=== PATIENT | female | born 1965 | race Caucasian/White ===

== ENCOUNTER 2018-05-25 09:31 | Day surgery (SDC) | payer OTHER ==
[2018-05-25] VITALS (16 sets, daily range): BP systolic 120–162; BP diastolic 61–103; PULSE 56–91; RESP 13–20
[~2018-05-25] VITALS: Ht 152.4 cm; Wt 66.9 kg
[~2018-05-25 09:31] MED LIST: CEFAZOLIN 1 GM INJ ONE; CEFAZOLIN 2 GM/50 ML (PMX) 50 ML IVPB ONE; SOD CHLORIDE 0.9% 1,000 ML IV SCH
[2018-05-25] MEDS ORDERED: LOSA25TA12 PO (10:32)
[2018-05-25] MEDS ORDERED: ATOR20TA38 PO (10:33)
--- NOTE | 2018-05-25 12:55 | PREAC ---
Date/Time of Note Date/Time of Note DATE: 05/25/18 TIME: 12:54 Anesthesia Eval and Record Evaluation Time Pre-Procedure Interview DATE: 05/25/18 TIME: 12:54 Age 52 Sex female NPO: 8 hrs Preoperative diagnosis gallstones Planned procedure lap choly Past Medical History Past Medical History: Includes Cardio: HTN Surgery & Anesthesia Issues No known issue Meds Anticoagulation: No Beta Kim within 24 hr: No Reason Beta Kim not given: Pt. not on B-Kim Reported Medications Atorvastatin Calcium* (Atorvastatin Calcium*) 20 Mg Tablet, 20 MG PO QHS, #30 TAB 05/25/18 Losartan Potassium* (Losartan Potassium*) 25 Mg Tablet, 25 MG PO DAILY, TAB 05/25/18 Current Medications Sodium Chloride 1,000 ml @ 75 mls/hr [id number] IV ; Start 05/25/18 at 08:00; Stop 05/25/18 at 21:19 Meds reviewed: Yes Allergies Coded Allergies: No Known Drug Allergies (Unverified Allergy, Unknown, 05/25/18) Allergies Reviewed: Yes Labs/Studies Labs Reviewed: Reviewed by anesthesiologist Result Diagram: 05/25/18 1035 05/25/18 1035 Laboratory Tests 05/25/18 10:35 test: N/A Pre-procedure Exam Last vitals Vital Signs Date Temp Pulse Resp B/P (MAP) Pulse Ox O2 O2 Flow FiO2 Time Delivery Rate 05/25/18 97.7 56 16 129/61 100 Room Air 10:55 (83) Airway: Adequate mouth opening, Adequate thyromental dist Mallampati: Mallampati III Teeth: Normal Lung: Normal Heart: Normal ASA Physical Status ASA physical status: 2 Emergency: None Pre-operative Attestations Prior to commencing anesthesia and surgery, the patient was re-evaluated, there was verification of: *The patient's identity *The results of appropriate recent lab work and preoperative vital signs *The above evaluation not changing prior to induction *Anesthetic plan, risk benefits, alternative and complications discussed with patient/family; questions answered; patient/family understands, accepts and wishes to proceed. MARIA DEL ROSARIO GLYNN DO May 25, 2018 12:55
[2018-05-25] MEDS ORDERED: HYDROmorphONE 1 MG/5 ML IV SYRINGE IV PRN (13:00)
[2018-05-25] MEDS ORDERED: PROPOFOL 20 ML ONE (13:12)
[2018-05-25] MEDS ORDERED: MIDAZOLAM 1 MG/ML 2 ML INJ ONE (13:12)
[2018-05-25] MEDS ORDERED: ROCURONIUM 50 MG INJ ONE (13:12)
[2018-05-25] MEDS ORDERED: SUCCINYLCHOLINE CHLORIDE 100 MG/5 ML SYG IV ONE (13:12)
[2018-05-25] MEDS ORDERED: LIDOCAINE 2% (SDV) 5 ML INJ ONE (13:12)
[2018-05-25] MEDS ORDERED: ROPIVACAINE 0.5 % 30 ML VIAL ONE (13:19)
[2018-05-25] MEDS ORDERED: DEXAMETHASONE 4 MG/ML 5 ML INJ ONE (13:46)
[2018-05-25] MEDS ORDERED: ONDANSETRON 4 MG INJ ONE (13:46)
[2018-05-25] MEDS ORDERED: GLYCOPYRROLATE 0.4 MG INJ ONE (14:09)
[2018-05-25] MEDS ORDERED: NEOSTIGMINE 10 MG INJ ONE (14:09)
--- NOTE | 2018-05-25 14:12 | OPR ---
Date/Time of Note Date/Time of Note DATE: 05/25/18 TIME: 14:10 Operative Report Procedure Date: May 25, 2018 Preoperative Diagnosis symptomatic gallstones Postoperative Diagnosis same Operation/Procedure Performed laparoscopic cholecystectomy Surgeon see signature line Compilation Clerk Mikhail Camargo Anesthesia Type: general Estimated Blood Loss: 0 - 10 ml's Transfusion none Specimen gallbladder Grafts/Implants none Complications none Pt Condition Post Procedure: stable Indications This is a 51-year-old female with centimeter gallstones. She required surgical excision of her gallbladder. Risks alternatives benefits and percent were discussed with the patient. Patient expressed understanding consents to the operation. Procedure Description Patient taken to the OR and prepped and draped in usual sterile fashion. Surgical time was performed. IV antibiotics was given. Infraumbilical transverse incision was made at the 15 blade. Dissection with cautery was carried onto the fascia. The fascia was grasped with Kearney's and divided with curved Morton scissors. 0 Vicryl U stitch was placed into the fascia. Bermudez trocar was introduced. Pneumoperitoneum is established. Midepigastric 12 mm optical trochars placed under direct visualization. Right upper quadrant upper flank 5 mm optical trochars were placed under direct visualization. On evaluation there is multiple adhesions to the gallbladder. The gallbladder was grasped the fundus and retracted in a lateral cephalad direction. [place] graspers were used to dissect out the cystic duct and cystic artery. The critical view was established. The cystic duct is divided with a 35 mm echelon vascular stapler due to its thickened tissue. The cystic artery was divided with 3 clips proximally clipped distal and the division was performed laparoscopic scissors. The gallbladder was taken off the gallbladder bed. Good hemostasis established. Minimal suction irrigation is used. The gallbladder is retrieved using Endo Catch bag. Ports removed under direct position. 0 Vicryl stitch was tied down. Skin is closed and skin tanja. A tap block was provided by the anesthesiologist. Dry dressings were applied. Kylie STEWARD May 25, 2018 14:12
[2018-05-25] MEDS ORDERED: HYDROCODONE/APAP (5/325) TAB PO ONE (14:30)
[2018-05-25] MEDS ORDERED: METOCLOPRAMIDE 10 MG INJ IV ONE (14:30)
[2018-05-25] MEDS ORDERED: DIPHENHYDRAMINE 50 MG INJ IV ONE (14:30)
--- NOTE | 2018-05-25 14:32 | PAC ---
Date/Time of Note Date/Time of Note DATE: 05/25/18 TIME: 14:31 Post-Anesthesia Notes Post-Anesthesia Note Last documented vital signs Vital Signs Date Temp Pulse Resp B/P (MAP) Pulse Ox O2 O2 Flow FiO2 Time Delivery Rate 05/25/18 98 75 18 135/62 100 Room Air 1431 Activity: WNL Respiratory function: WNL Cardiovascular function: WNL Mental status: Baseline Pain reasonably controlled: Yes Hydration appropriate: Yes Nausea/Vomiting absent: Yes MARIA DEL ROSARIO GLYNN DO May 25, 2018 14:32
[2018-05-25] MEDS: HYDROmorphONE 1 MG/5 ML IV SYRINGE IV PRN ×2 (14:33→14:39)
[2018-05-25] MEDS ORDERED: hydrALAzine 20 MG INJ IV PRN (15:00)
--- NOTE | 2018-05-26 14:15 | RADRPT ---
Vent Rate: 56 bpm RR Interval: 0 msec SD Interval: 154 msec QRS Duration: 86 msec QT Interval: 434 msec QTC Interval: 418 msec P-R-T Toutle: 48 - 46 - 44 degrees Sinus bradycardia Otherwise normal ECG Electronically Signed By: Brian Price
== END 2018-05-25 17:00 | disposition home or self-care (01) ==
LOC: SDS 09:31
PROVIDERS: ATTEND Surgery
DX: K80.10 Calculus of gallbladder with chronic cholecystitis without obstruction (principal)
CPT/HCPCS: 47562; 71045; 80053; 84703; 85025; 85610; 85730; 93005; J1100; J1170; J2250; J2405; J2710; J2795; J3010; Z7512; Z7610; 88304; J0690